=== PATIENT | male | born 1995 | race Caucasian/White ===

== ENCOUNTER 2017-12-10 23:50 | Emergency (ER) | payer BC ==
[~2017-12-10] VITALS: Ht 175.3 cm; Wt 65.8 kg
[2017-12-11 00:03] VITALS: BP 138/83
--- NOTE | 2017-12-11 00:23 | PHYS DOC ---
Adult General Chief Complaint Chief Complaint: ASTHMA HPI HPI Patient is a 22 year old male who presents to the ER with complaints of asthma problems for the last 3 days. He has been using his home nebulizer frequently. He denies any fever, nausea, vomiting, diarrhea, sore throat, or ear pain. He reports nasal congestion, runny nose, and increased discomfort with inspiration. He has had a productive cough with clear sputum in addition to shortness of breath and wheezing. He reports the pain with coughing is a 6 out of 10 on the pain scale. Review of Systems Review of Systems Constitutional: Denies fever or chills [] Eyes: Denies change in visual acuity, redness, or eye pain [] HENT: Denies sore throat, reports nasal congestion and runny nose Respiratory: reports wheezing, shortness of breath, and productive cough with clear sputum Cardiovascular: No additional information not addressed in HPI [] GI: Denies abdominal pain, nausea, vomiting, or diarrhea [] Musculoskeletal: Denies back pain Integument: Denies rash or skin lesions [] Neurologic: Denies headache, focal weakness or sensory changes [] All other systems were reviewed and found to be within normal limits, except as documented in this note. Current Medications Current Medications Current Medications Medications (Trade) Dose Ordered Sig/Saad Start Time Stop Time Status Last Admin Dose Admin Albuterol Sulfate (Ventolin Neb Soln) 2.5 mg 1X ONCE 12/11/17 01:00 12/11/17 01:01 DC 12/11/17 00:51 2.5 MG Dexamethasone Sodium Phosphate (Decadron) 10 mg 1X ONCE 12/11/17 00:30 12/11/17 00:31 DC 12/11/17 00:29 10 MG Allergies Allergies Allergies Coded Allergies Type Severity Reaction Last Updated Verified No Known Drug Allergies 12/11/17 No Physical Exam Physical Exam Constitutional: Well developed, well nourished, no acute distress, non-toxic appearance. [] HENT: Normocephalic, atraumatic, bilateral external ears normal, oropharynx moist, no oral exudates, nose normal. [] Eyes: PERRLA, conjunctiva normal, no discharge. [] Neck: Normal range of motion, no tenderness, supple, no stridor. [] Cardiovascular:Heart rate regular rhythm, no murmur [] Lungs & Thorax: Bilateral breath sounds inspiratory and expiratory wheezes diminished posterior, speaking 3-4 words at a time. Skin: Warm, dry, no erythema, no rash. [] Extremities: No tenderness, no cyanosis, no clubbing, ROM intact, no edema. [] Neurologic: Alert and oriented X 3, normal motor function, normal sensory function, no focal deficits noted. [] Psychologic: Affect normal, judgement normal, mood normal. [] Current Patient Data Vital Signs Vital Signs Date Time Temp Pulse Resp B/P (MAP) Pulse Ox O2 Delivery O2 Flow Rate FiO2 12/11/17 00:52 Room Air 12/11/17 00:03 99.0 89 23 138/83 (101) 93 99.0 EKG EKG [] Radiology/Procedures Radiology/Procedures lung sounds improved after 2 breathing treatments in ER, lung sounds expiratory wheezes anteriorly, coarse with scattered expiratory wheezes posteriorly. No retractions, o2 sat 97-99% on room air. No increase work of breathing, pt reports feeling much better. [] Course & Med Decision Making Course & Med Decision Making Pertinent Labs and Imaging studies reviewed. (See chart for details) Dx: Acute Asthma exacerbation, bronchitis Pt was given 10 mg of decadron and two albuterol nebulizer treatments in the department. Pt's lung sounds improved and pt reports feeling better. Advised pt to avoid airway irritants including perfumes, colognes, dust, smoke, and other triggers. Follow up with PCP in 1-2 days. Prescriptions written for albuterol nebulizer vials, prednisone, and augmentin. Patient verbalized an understanding of home care, medications, follow-up, and return to ED instructions and was in agreement with the plan of care. [] Dragon Disclaimer Dragon Disclaimer This electronic medical record was generated, in whole or in part, using a voice recognition dictation system. Departure Departure Impression: Primary Impression: Acute asthma exacerbation Additional Impression: Bronchitis Disposition: 01 HOME, SELF-CARE Condition: IMPROVED Referrals: JENNIFER MCKAY (PCP) Patient Instructions: Acute Bronchitis, [id number], Asthma, Adult, Easy-to- Read Additional Instructions: Fill prescriptions and use as directed. Start antibiotic if symptoms worsen or persist. Follow up with your primary care doctor in 1-2 days, return to the ER if your symptoms worsen. Avoid exposure to airway irritants such as perfumes, cologne, dust, pollen, smoke, and candles. Increase clear fluids. Scripts Amoxicillin/Potassium Clav (AUGMENTIN 875-125 TABLET) 1 Each Tablet 1 TAB PO BID, #14 TAB 0 Refills Prov: SUSANNAH LAZO APRN 12/11/17 Prednisone (PREDNISONE) 50 Mg Tablet 50 MG PO DAILY for 5 Days, #5 TAB 0 Refills Prov: SUSANNAH LAZO APRN 12/11/17 Albuterol Sulfate (ALBUTEROL SULFATE NEB SOLN) 2.5 Mg/3 Ml Vial.neb 1 VIAL NEB PRN Q4HRS PRN for SHORTNESS OF BREATH, #50 VIAL 1 Refill Prov: SUSANNAH LAZO APRN 12/11/17 Problem Qualifiers Primary Impression: Acute asthma exacerbation Asthma severity: moderate Asthma persistence: unspecified Qualified Codes: J45.901 - Unspecified asthma with (acute) exacerbation SUSANNAH LAZO APRN Dec 11, 2017 00:23
[2017-12-11] MEDS ORDERED: ALBUTEROL SULFATE 2.5 MG/3 ML NEBU. NEB ONE ×2 (00:30→01:00)
[2017-12-11] MEDS ORDERED: DEXAMETHASONE SOD PHOS 20 MG/5 ML VIAL. PO ONE (00:30)
[2017-12-11] MEDS ORDERED: ALBU2.5V5 NEB (01:11)
[2017-12-11] MEDS ORDERED: PRED50TA PO (01:11)
[2017-12-11] MEDS ORDERED: AMOX1TAB61 PO (01:11)
== END 2017-12-11 01:20 | disposition home or self-care (01) ==
LOC: ER 23:50
DX: J45.901 Unspecified asthma with (acute) exacerbation (principal)
CPT/HCPCS: 94640; 99284; J1100; J7613